=== PATIENT | male | born 1955 | race Caucasian/White ===

== ENCOUNTER 2020-07-05 14:35 | Inpatient (IN) | payer OTHER ==
[~2020-07-05] VITALS: Ht 188 cm; Wt 69.4 kg
[2020-07-05] VITALS (15 sets, daily range): BP systolic 78–169; BP diastolic 37–141
--- NOTE | 2020-07-05 14:51 | NUR ---
HOLGER, MAYNOR, [phone] CALLED.
--- NOTE | 2020-07-05 14:52 | NUR ---
ANOTHER CG, LEXIE, CAN BE CONTACTED
[2020-07-05] MEDS ORDERED: IV NS 0.9% 1,000 ML BAG IV ONE ×2 (15:00→16:00)
[2020-07-05] MEDS ORDERED: DEXTROSE 50%-WATER 50 ML DISP.SYRIN ONE ×2 (15:01→16:08)
[2020-07-05 15:10] LABS: BASOPHILS # (AUTO) 0.1 /CMM (0.0-0.2); BASOPHILS % (AUTO) 0.8 % (0.0-2.0); EOSINOPHILS % (AUTO) 0.4 % (0.0-6.0); HEMATOCRIT 24 % (39-51); HEMOGLOBIN 7.5 g/dL (13.5-17.5); LYMPHOCYTES # (AUTO) 1.4 /CMM (0.8-4.8); LYMPHOCYTES % (AUTO) 16.2 % (20.0-44.0); MEAN CORPUSCULAR HGB CONC 32 g/dl (31.0-36.0); MEAN CORPUSCULAR VOLUME 93 fL (80-96); MONOCYTES # (AUTO) 0.8 /CMM (0.1-1.30); MONOCYTES % (AUTO) 9.7 % (2.0-12.0); NEUTROPHILS # (AUTO) 6.3 /CMM (1.8-8.9); NEUTROPHILS % (AUTO) 72.9 % (43.0-81.0); PLATELET COUNT (AUTO) 139 /CMM (150-450); RED BLOOD CELL COUNT(AUTO) 2.55 MIL/uL (4.5-6.0); WHITE BLOOD COUNT (AUTO) 8.7 K/uL (4.3-11.0)
--- NOTE | 2020-07-05 15:12 | NUR ---
DILCIA FROM HOME TO ER BED 5. AAOX4. IN MODERATE DISTRESS, SOB. BROUGHT IN FOR HYPOTENSION, WEAKNESS, HYPOGLYCEMIA AND HYPOXIA. PT VERBALIOZED THAT HE DOES NOT FEEL GOOD. PT IS NOTED SOB AND WAS REPORTED TO HAVE O2 SAT IN THE 80S, BP WAS NOTED IN THE 90S, ACCUCHECK 56 AND WAS REPORTED BY EMS IN THE 20S. PT REPORTS THAT HE HASNT BEEN EATING WELL FOR THE PAST SEVERAL DAY. PT IS PLACED ON02 VIA NC AND PATTING @ 95%, FLUIDS RUNNING AND GIVNE 1 AMP D50%.. WAS AT THE BEDSIDE FOR EVAL. ORDERS RECEIVED, NOTED AND CARRIED OUT. IV LINE ESTABLISHED BY EMS ON THE L AC 18. BLOOD DRAWN. EKG DONE. COVID SWAB DONE. PT ON MONITOR.
[2020-07-05] MEDS ORDERED: ONDA4TAB5 PO (15:17)
[2020-07-05] MEDS ORDERED: POLY17PO4 PO (15:17)
[2020-07-05] MEDS ORDERED: CYAN-6 IM (15:17)
[2020-07-05] MEDS ORDERED: SORA200T2 PO (15:17)
[2020-07-05] MEDS ORDERED: POTA20TA83 PO (15:17)
[2020-07-05] MEDS ORDERED: NITR0.4T48 SL (15:17)
[2020-07-05] MEDS ORDERED: TEST200V3 IM (15:17)
[2020-07-05] MEDS ORDERED: CHOL100062 PO (15:17)
[2020-07-05] MEDS ORDERED: BUPR300T52 PO (15:17)
[2020-07-05] MEDS ORDERED: FURO-144 PO (15:17)
[2020-07-05] MEDS ORDERED: OXYC60TA8 PO (15:17)
[2020-07-05] MEDS ORDERED: CARV6.252 PO (15:17)
[2020-07-05] MEDS ORDERED: OXYC30TA48 PO (15:17)
[2020-07-05] MEDS ORDERED: ESOM20CA PO (15:17)
[2020-07-05] MEDS ORDERED: LACT10SO3 PO (15:17)
[2020-07-05] MEDS ORDERED: DOLU50TA PO (15:17)
[2020-07-05] MEDS ORDERED: MULT-447 PO (15:17)
[2020-07-05] MEDS ORDERED: DARU1TAB PO (15:17)
[2020-07-05] MEDS ORDERED: DOCU-141 PO (15:17)
[2020-07-05 15:23] LABS: CALCIUM, SERUM 8.4 mg/dL (8.5-10.1); CARBON DIOXIDE 20 mmol/L (21-32); CHLORIDE 97 mmol/L (98-107); CREATININE 1.9 mg/dL (0.6-1.3); GLUCOSE 60 mg/dL (74-106); POTASSIUM 5.2 mmol/L (3.5-5.1); SODIUM SERUM 130 mmol/L (136-145); UREA NITROGEN, BLOOD 20 mg/dL (7-18)
[2020-07-05 15:53] LABS: ALBUMIN 2.1 g/dL (3.4-5.0); ALKALINE PHOSPHATASE 292 U/L (46-116); BILIRUBIN,DIRECT 1.5 mg/dL (0.0-0.2); BILIRUBIN,TOTAL 2.3 mg/dL (0.2-1.0); TOTAL PROTEIN, SERUM 5.9 g/dL (6.4-8.2)
[2020-07-05] MEDS ORDERED: INSULIN REGULAR, HUMAN 100 UNIT/ML 10 ML VIAL ONE (15:55)
[2020-07-05] MEDS ORDERED: VANCOMYCIN 1 GM VIAL ONE (15:55)
[2020-07-05] MEDS ORDERED: PIPERACILLIN /TAZOBACTAM 3.375 G VIAL IV ONE (15:55)
[2020-07-05] MEDS ORDERED: PIPERACILLIN /TAZOBACTAM 3.375 G in IV D5W 50 ML IV ONE (16:00)
[2020-07-05] MEDS ORDERED: DEXTROSE 50%-WATER 50 ML DISP.SYRIN IV ONE (16:00)
[2020-07-05] MEDS ORDERED: VANCOMYCIN 1 GM in IV D5W 250 ML IV ONE (16:00)
[2020-07-05] MEDS ORDERED: INSULIN REGULAR, HUMAN 100 UNIT/ML 10 ML VIAL IV ONE (16:00)
[2020-07-05] MEDS ORDERED: Calcium Gluconate 1GM/10ML 4.65 MEQ in IV D5W 50 ML IV ONE (16:00)
[2020-07-05 16:12] LABS: SERUM AMMONIA 63 umol/L (11-32)
--- NOTE | 2020-07-05 16:13 | NUR ---
MD MADE AWARE OF BS 74 AFTER D50% WAS GIVEN. PT IS TO RECEIVE INSULIN FOR ELEVATED K+, MD MADE AWARE AND VERBAL ORDER RECEIVED TO GIVE 1 AMP D50% IVP X 1. NOTED AND CARRIED OUT.
[2020-07-05 16:17] LABS: ALANINE AMINOTRANSFERASE 1148 U/L (12-78)
--- NOTE | 2020-07-05 16:23 | NUR ---
PAGED SUSI GEORGE FOR ADMISSION
[2020-07-05] MEDS ORDERED: DEXTROSE 50%-WATER 50 ML DISP.SYRIN IVP ONE (16:30)
[2020-07-05 16:31] LABS: ASPARTATE AMINOTRANSFERASE 4884 U/L (15-37)
[2020-07-05] MEDS ORDERED: IOHEXOL-350 100 ML VIAL IV ONE (16:37)
[2020-07-05] MEDS ORDERED: CT SWABBABLE VALVE TRANS SET 1 EA INFUS.SET MC ONE (16:37)
[2020-07-05] MEDS ORDERED: IV NS 0.9% 250 ML IV ONE (16:37)
--- NOTE | 2020-07-05 16:50 | NUR ---
PT TO CT ON JAMILAH
--- NOTE | 2020-07-05 16:59 | NUR ---
PT STILL UNABLE TO PROVIDE URINE AT THS TIME. PT OFFERED COLLECTION VIA CATH BY REFUSED. MADE AWARE
--- NOTE | 2020-07-05 17:45 | NUR ---
MD MADE AWARE THAT BP IS 96/55 HR 125. NNO RECEIVED.
[2020-07-05 17:51] LABS: BILIRUBIN,URINE SMALL (NEGATIVE); COLOR,URINE DARK YELLOW (YELLOW); LEUKOCYTE ESTERASE ,URINE Negative (NEGATIVE); NITRITE, URINE Negative (NEGATIVE); PH,URINE 5.5 (5.0-8.0); PROTEIN,URINE >=300 mg/dl (NEGATIVE); UGLUCOSE Negative (NEGATIVE); UROBILINOGEN,URINE 0.2 EU/dL (0.2)
[2020-07-05 18:08] LABS: BACTERIA,URINE Few /HPF (None Seen); FINE GRANULAR CASTS,URINE Few /LPF (None Seen); HYALINE CASTS, URINE Few /LPF (None Seen); SQUAMOUS EPITHELIAL CELL,UR Few /HPF (None Seen); URINE AMORPHOUS URATE Moderate /HPF (None Seen); WBC,URINE 0-2 /HPF (0-3)
--- NOTE | 2020-07-05 18:55 | NUR ---
PT NOTED WITH BP OF 88/60 AND HR OF 127. MD MADE AWARE. VERBAL ORDER RECEIVED TO START LEVOPHED PERIPHERALLY.
--- NOTE | 2020-07-05 19:10 | NUR ---
PATRICIO, [facility] - [phone]
[2020-07-05] MEDS ORDERED: NOREPINEPHRINE 8 MG in IV NS 0.9% 250 ML IV ONE (19:30)
--- NOTE | 2020-07-05 19:54 | NUR ---
SUSI GEORGE DNP AT BEDSIDE TO RE-EVAL PT.
--- NOTE | 2020-07-05 20:16 | NUR ---
REPORT GIVEN TO ALICIA SALVADOR FOR LUCIEN
[2020-07-05] MEDS ORDERED: Z GUARD REMEDY 2 OZ OINT TP PRN (20:30)
[2020-07-05] MEDS ORDERED: GLUCAGON,HUMAN RECOMBINANT 1 MG/VIAL VIAL IM ONE (20:30)
[2020-07-05] MEDS ORDERED: DEXAMETHASONE SOD PHOSPHATE 10 MG/ML VIAL IV ONE (20:30)
[2020-07-05] MEDS ORDERED: HYDROMORPHONE INJ 2 MG/ML DISP.SYRIN IV PRN (20:30)
[2020-07-05] MEDS ORDERED: NOREPINEPHRINE 8 MG in IV NS 0.9% 242 ML IV PRN (20:30)
[2020-07-05] MEDS ORDERED: ZOLPIDEM TARTRATE 5 MG TABLET PO PRN (20:30)
[2020-07-05] MEDS ORDERED: FLUCONAZOLE IN NS 100 MG in PREMIX 1 EA IV SCH (20:30)
[2020-07-05] MEDS ORDERED: ACETAMINOPHEN 325 MG TABLET PO PRN (20:30)
[2020-07-05] MEDS ORDERED: ONDANSETRON HCL/PF 4 MG/2 ML VIAL IVP PRN (20:30)
--- NOTE | 2020-07-05 20:38 | NUR ---
pt transported to unit on gurney with emt and rn at bedside w/ acls protocol. nad noted during transport.
[2020-07-05] MEDS: NOREPINEPHRINE 8 MG in IV NS 0.9% 242 ML IV PRN (20:45)
--- NOTE | 2020-07-05 20:45 | NUR ---
ELECTRIC SWITCH TESTER RCD PT FROM ER W/DX SEPSIS W/SHOCK; HYPOXIC RESP FAIL. PT IS A/O x4. RESISTANT TO CARE ASKING TO JUST BE LEFT ALONE. ST ON MONITOR. LEVOPHED 0.1 MCG/KG/MIN VIA RIGTH FEM TLC. SKIN INTACT. PT EDUCATED ON THE USE OF CALL LIGHT AND TO ASK FOR ASSISTANCE IF NEEDS TO GET OUT OF BED. Addendum: 07/06/20 at 0547 by MODESTO PETERSON RN O2 6L NC
[2020-07-05] MEDS: IV LR 1000 ML 1,000 ML IV PRN (21:05)
[2020-07-05] MEDS ORDERED: ALBUMIN 25% 100 ML IV ONE (21:18)
[2020-07-05] MEDS: FLUDROCORTISONE 0.1 MG TABLET PO SCH (21:25)
[2020-07-05] MEDS: HYDROCORTISONE SOD SUCCINATE 100 MG/2 ML VIAL IV SCH (21:25)
[2020-07-05] MEDS: ALBUMIN 25% 25 GM in PREMIX 1 EA IV SCH (21:25)
--- NOTE | 2020-07-05 21:30 | NUR ---
SCHOOL NURSE PT REQUESTING XANAX 2 MG FOR SLEEP; PER PT THIS IS WHAT HE TAKES AT HOME.
[2020-07-05] MEDS ORDERED: FLUCONAZOLE IN NS 100 ML IV ONE (21:37)
[2020-07-05 21:55] LABS: THYROID STIMULATING HORMONE 5.983 uIU/mL (0.358-3.74)
[2020-07-05] MEDS ORDERED: CEFEPIME 2 GM in IV D5W 100 ML IV ONE (22:00)
[2020-07-05] MEDS ORDERED: ALPRAZOLAM 1 MG TABLET PO PRN (22:00)
[2020-07-05] MEDS ORDERED: IV NS 0.9% 250 ML IV PRN (22:30)
--- NOTE | 2020-07-05 22:30 | NUR ---
LITIGATION DOCKET MANAGER PT ATTEMPTING TO GET OUT OF BED; REEDUCATED PT THAT HE NEEDS TO CALL FOR ASSISTANCE PRIOR TO GETTING OUT OF BED HE IS ATTACHED TO THE MONITOR AND HAD MEDICATIONS RUNNING THRU HIS FEM SITE. PT ATTEMPTED TO URINATE UNSUCCESFULLY.
[2020-07-05] MEDS ORDERED: CEFEPIME 1 GM VIAL ONE (23:12)
[2020-07-05] MEDS ORDERED: ALBUMIN 25% 50 ML IV ONE (23:13)
--- NOTE | 2020-07-05 23:50 | NUR ---
MOTOR ASSEMBLY SUPERVISOR BSWR APPLIED TO PREVENT SELF EXTUBATION.
[2020-07-06] VITALS (40 sets, daily range): BP systolic 35–136; BP diastolic 20–85
[2020-07-06] MEDS ORDERED: CLINDAMYCIN IV RTU IN D5W 900 MG/50 ML PIGGYBACK IV ONE
[2020-07-06] MEDS ORDERED: IV 10% DEXTROSE 1,000 ML IV PRN
--- NOTE | 2020-07-06 | NUR ---
ECOMMERCE ANALYST PT NOTED TO BE DESATURATING WITH DECREASED HEART RATE. PT PEA. CODE BLUE CALLED. PT INTUBATED BY ER MD OSORIO. RCD ORDERS FOR NG TUBE TO LIS. RESTRAINTS. PROPORFOL NEEDED. POST INTUBATION CXR AND ABG DONE.
[2020-07-06 00:01] LABS: BASOPHILS # (AUTO) 0.1 /CMM (0.0-0.2); BASOPHILS % (AUTO) 1.1 % (0.0-2.0); EOSINOPHILS % (AUTO) 0.4 % (0.0-6.0); HEMATOCRIT 23 % (39-51); HEMOGLOBIN 7.4 g/dL (13.5-17.5); LYMPHOCYTES # (AUTO) 1.1 /CMM (0.8-4.8); LYMPHOCYTES % (AUTO) 16.2 % (20.0-44.0); MEAN CORPUSCULAR HGB CONC 32 g/dl (31.0-36.0); MEAN CORPUSCULAR VOLUME 92 fL (80-96); MONOCYTES # (AUTO) 0.2 /CMM (0.1-1.30); MONOCYTES % (AUTO) 3.1 % (2.0-12.0); NEUTROPHILS # (AUTO) 5.4 /CMM (1.8-8.9); NEUTROPHILS % (AUTO) 79.2 % (43.0-81.0); PLATELET COUNT (AUTO) 118 /CMM (150-450); WHITE BLOOD COUNT (AUTO) 6.8 K/uL (4.3-11.0)
--- NOTE | 2020-07-06 00:14 | NUR ---
CODE BLUE @6205. CPR INITIATED. ER MD OSORIO AT BEDSIDE FOR INTUBATION. PT INTUBATED @2341. 7.5 ETT SECURED AT 25CM AT THE LIP. COLOR CHANGE ON CO2 DETECTOR, BILAT CHEST RISE. PT PLACED ON 840 VENT. AC 20, 500, 100%, +5. ABG IN 30MINS. Addendum: 07/06/20 at 0019 by GENE BALTAZAR RT Amended: Links added.
[2020-07-06 00:56] LABS: CALCIUM, SERUM 7.6 mg/dL (8.5-10.1)
[2020-07-06 01:02] LABS: POTASSIUM 6.3 mmol/L (3.5-5.1)
[2020-07-06 01:25] LABS: ABG BASE EXCESS -11.7 mmol/L; ABG OXYGEN SATURATION 99.1 % (92.0-98.5); ABG PCO2 33.4 mmHg (35.0-45.0); ABG PH 7.253 (7.350-7.450); ABG PO2 187.5 mmHg (75.0-100.0); AaDO2 492.1 mmHg; COHb 0.3 % (0.5-1.5); MetHb 0.4 % (0.0-1.5); O2Hb 98.4 % (94.0-97.0); PEEP,BG 5 cm H2O; SITE, ABG Right Radial
--- NOTE | 2020-07-06 01:25 | NUR ---
ABG DONE. NOTIFIED RN WITH RESULT.
[2020-07-06] MEDS ORDERED: DEXTROSE 50%-WATER 50 ML DISP.SYRIN IVP ONE ×2 (01:30→06:00)
[2020-07-06] MEDS ORDERED: INSULIN REGULAR, HUMAN 100 UNIT/ML 3 ML VIAL IV ONE ×2 (01:30→06:00)
[2020-07-06] MEDS ORDERED: SODIUM POLYSTYRENE SULFONATE 15 G/60 ML BOTTLE PO ONE ×2 (01:30→06:00)
[2020-07-06] MEDS ORDERED: SODIUM POLYSTYRENE SULFONATE 15 G/60 ML BOTTLE ONE ×2 (01:36→06:31)
[2020-07-06] MEDS ORDERED: INSULIN REGULAR, HUMAN 100 UNIT/ML 3 ML VIAL ONE (01:38)
--- NOTE | 2020-07-06 02:00 | NUR ---
BIOCHEMISTRY PROFESSOR PROPOFOL STARTED PER PROTOCOL PT NOTED TO BE TACHYPNEIC.
[2020-07-06] MEDS: IV LR 1000 ML 1,000 ML IV PRN ×2 (02:05→07:39)
[2020-07-06] MEDS: PROPOFOL 100 ML IV PRN ×2 (02:11→06:18)
[2020-07-06] MEDS ORDERED: ALBUMIN 25% 50 ML IV ONE (03:26)
[2020-07-06] MEDS: ALBUMIN 25% 25 GM in PREMIX 1 EA IV SCH ×2 (03:30→09:10)
[2020-07-06 04:34] LABS: BASOPHILS % (AUTO) 0.4 % (0.0-2.0); HEMATOCRIT 22 % (39-51); HEMOGLOBIN 7.3 g/dL (13.5-17.5); LYMPHOCYTES # (AUTO) 0.2 /CMM (0.8-4.8); LYMPHOCYTES % (AUTO) 5.5 % (20.0-44.0); MEAN CORPUSCULAR HGB CONC 33 g/dl (31.0-36.0); MEAN CORPUSCULAR VOLUME 90 fL (80-96); MONOCYTES # (AUTO) 0.3 /CMM (0.1-1.30); MONOCYTES % (AUTO) 9.2 % (2.0-12.0); NEUTROPHILS % (AUTO) 84.9 % (43.0-81.0); PLATELET COUNT (AUTO) 93 /CMM (150-450); RED BLOOD CELL COUNT(AUTO) 2.45 MIL/uL (4.5-6.0); WHITE BLOOD COUNT (AUTO) 3.5 K/uL (4.3-11.0)
[2020-07-06 04:46] LABS: CHOLESTEROL 19 mg/dL (<200); LDL 10 mg/dL (0-99); TRIGLYCERIDES 58 mg/dL (30-150)
[2020-07-06 04:50] LABS: HDL CHOLESTEROL < 10 mg/dL (40-60)
[2020-07-06] MEDS: HYDROCORTISONE SOD SUCCINATE 100 MG/2 ML VIAL IV SCH ×2 (05:24→12:41)
[2020-07-06 05:40] LABS: ALANINE AMINOTRANSFERASE 3412 U/L (12-78); ALBUMIN 2.3 g/dL (3.4-5.0); ALKALINE PHOSPHATASE 576 U/L (46-116); BILIRUBIN,TOTAL 4.9 mg/dL (0.2-1.0); CARBON DIOXIDE 16 mmol/L (21-32); CHLORIDE 95 mmol/L (98-107); CREATININE 2.2 mg/dL (0.6-1.3); GLUCOSE 81 mg/dL (74-106); MAGNESIUM 2.6 mg/dL (1.8-2.4); SODIUM SERUM 128 mmol/L (136-145); UREA NITROGEN, BLOOD 29 mg/dL (7-18)
[2020-07-06 05:43] LABS: PHOSPHORUS 13.5 mg/dL (2.5-4.9)
[2020-07-06 05:49] LABS: POTASSIUM 7.1 mmol/L (3.5-5.1)
[2020-07-06] MEDS ORDERED: SODIUM BICARBONATE SYR 50 MEQ/50 ML DISP.SYRIN IV ONE ×2 (06:00→17:15)
--- NOTE | 2020-07-06 06:00 | NUR ---
BLOCK TESTER PT ADEQUATELY SEDATED; DECREASED PROPOFOL PER PROTOCOL AND REMOVED RESTRAINTS.
[2020-07-06 06:05] LABS: BAND % (MANUAL) 27 % (0.0-5.0); LYMPHOCYTES % (MANUAL) 4 % (16-48); MONOCYTES % (MANUAL) 10 % (0-11.0); NEUTROPHILS % (MANUAL) 59 (42-76)
[2020-07-06] MEDS ORDERED: Calcium Gluconate 0.465 MEQ/ML VIAL IV ONE (06:21)
[2020-07-06] MEDS ORDERED: PROPOFOL 10MG/ML 50ML 50 ML IV PRN (06:30)
[2020-07-06] MEDS ORDERED: Calcium Gluconate 1GM/10ML 4.65 MEQ in IV D5W 50 ML IV ONE (06:30)
[2020-07-06 06:57] LABS: ASPARTATE AMINOTRANSFERASE 17008 U/L (15-37)
--- NOTE | 2020-07-06 07:30 | NUR ---
RN NOTES RECEIVED PATIENT ETT/VENT DEPENDENT. ETT-7.5/25, FIO2-50, PEEP -5, TV-500, BP-127/75, P-72, 02-100, PATIENT HAS NO REFLEX OF CORNEAL, NO GAG REFLEX, NOT RESPONDING PAIN . DECREASED DIPRIVAN PER PROTOCOL. KCL-7.1, ACCORDING NIGHT NURSE ADMINISTERED SCHEDULED MEDICATION TO DECREASE LEVEL. PATIENTS SKIN YELLOW DISCOLORATION. INFUSING LEVOPHED 0.3 MCG/KG/HR, LR-175 ML/HR, D10@40ML, AND TKO 10ML ON FEMORAL TLC. PATENT FULL CODE, SEEN REVERSER Dr BOOTH, AND Dr MCCAIN. VINOD HAS NO OUTPUT. WILL MONITORING.
[2020-07-06] MEDS: FLUDROCORTISONE 0.1 MG TABLET PO SCH (08:06)
[2020-07-06] MEDS ORDERED: PANTOPRAZOLE 40 MG VIAL IV SCH (09:00)
[2020-07-06] MEDS ORDERED: MULTIVITAMINS,THERAGRAN 1 UDTAB TABLET PO SCH (09:00)
--- NOTE | 2020-07-06 09:30 | NUR ---
RN NOTES PATIENT DNR AT THIS TIME WITH ORDER OF Dr BOOTH. PATIENT HAS NO CORNEAL LIGHT REFLEX , NO GOUGE REFLEX, INCREASED LEVOPHED 0.6MCG/KG/HR BECAUSE DROP BP 79/56.
[2020-07-06] MEDS: NOREPINEPHRINE 8 MG in IV NS 0.9% 242 ML IV PRN ×2 (09:57→12:19)
[2020-07-06 09:59] LABS: CALCIUM, SERUM 6.5 mg/dL (8.5-10.1); CREATININE 2.4 mg/dL (0.6-1.3)
[2020-07-06] MEDS ORDERED: CEFEPIME 2 GM in IV D5W 100 ML IV SCH (10:00)
[2020-07-06 10:09] LABS: POTASSIUM 8.1 mmol/L (3.5-5.1)
--- NOTE | 2020-07-06 10:10 | NUR ---
RN NOTES GET CALL FROM LAB [facility] 8.1, HOSPITALIST NOTIFIED. PATIENTS FRIEND BEDSIDE. HOSPITALIST TALK TO HER, AND EXPLAINED PATIENT CRITICAL CONDITION.
[2020-07-06] MEDS ORDERED: Sodium Bicarbonate 100 MEQ in IV D5/0.45 NACL 1,000 ML IV PRN (10:30)
--- NOTE | 2020-07-06 10:41 | NUR ---
RN NOTES BELONGING GIVEN FRIEND NAME GILBERT [phone], AND SIGN PAPERWORK. PER DR MCCAIN RT CHANGE VENT SETTING RESPIRATORY 20 TO 28 , BP 39/20, P-20, O2-42, R-28. FRIENDS NEXT TO THE BED.
--- NOTE | 2020-07-06 11:56 | NUR ---
RN NOTES PATIENTS FIENDS ASKING EXTUBATION . NOTIFIED HOSPITALIST BOB SEALS TO SPEAK FRIENDS ABOUT WISHES.
[2020-07-06] MEDS ORDERED: VANCOMYCIN 0.75 GM in IV D5W 250 ML IV SCH (12:00)
[2020-07-06] MEDS ORDERED: LORAZEPAM INJ 2 MG/ML VIAL IV ONE (13:00)
[2020-07-06] MEDS ORDERED: SCOPOLAMINE PATCH 1 MG/72HR TD SCH (13:00)
--- NOTE | 2020-07-06 13:08 | NUR ---
RN NOTES GET ORDER EXTUBATION AT THIS TIME VIA HOSPITALIST FOR COMFORT CARE. ALSO GET Transderm Scop Patch 1 mg/72 Hr(SCOPOLAMINE PATCH 1 MG/72HR 1 EA TD Q72H RAPHAEL <1 PATCH.TD72> ANTI NAUSEA VIA ARNEL RENEE NP. RT NOTIFIED.
--- NOTE | 2020-07-06 13:29 | NUR ---
RN NOTES PATIENT EXTUBATED AT THIS TIME FOR COMFORT MEASURE, PATIENT STILL HAS A PULSE 50. ADMINISTERED ATIVAN 0.5 MG/ML IV PUSH, AND NAUSEA MEDICATION APPLIED BEHIND OF EAR. FRIENDS IN THE BEDSIDE.
--- NOTE | 2020-07-06 13:45 | NUR ---
RN NOTES PATIENT PRONOUNCED AT THIS TIME VIA HOSPITALIST BOB SOLORIO. PATIENT HAS NO AUDIBLE HEART TONE, NO BP, NO RR. POST MORTEM CARE DONE, BELONGING TAKEN VIA FRIENDS, AND SIGNED BELONGING LIST. TAGS APPLIED. WILL CALL SECURITY PERSONNEL AFTER CALLING [facility] BODY ROUNDHOUSE WORKER.
--- NOTE | 2020-07-06 13:45 | NUR ---
rn notes patient at this time, notified hospitalist Shaan Hodge [employer] BI DEVELOPER, warehouse order picker, and admitting. friends at bedside. stop medication, and o2nc.
--- NOTE | 2020-07-06 14:14 | NUR ---
rn notes called rn cvor department and spoke personal name Bita. According personal patient is not rn cvor. will call [facility].
--- NOTE | 2020-07-06 14:20 | NUR ---
rn notes called [facility] report personnel name is Tamiko case # is [phone].
--- NOTE | 2020-07-06 15:00 | NUR ---
RN NOTES PATIENT BODY TAKEN DOWN TO [facility] AT THIS TIME.
--- NOTE | 2020-07-06 15:12 | NUR ---
RN NOTES GET CALL FROM [facility] PERSONNEL NAME VANESSA AT THIS TIME FOR TISSUE DONATION ELIGIBILITY. ACCORDING DX: HIV, AND CA HISTORY, UNABLE GET TISSUE DONATION. CAN RELEASE BODY. RELEASE # [id number].
[2020-07-06] MEDS ORDERED: DEXTROSE 50%-WATER 50 ML DISP.SYRIN IV ONE (17:15)
[2020-07-06] MEDS ORDERED: EPINEPHRINE (1:10,000) SYRINGE 1 MG/10 ML DISP.SYRIN IVP ONE (17:15)
[2020-07-07 05:08] LABS: *BASOS 3 % (Not Estab.); *BASOS, ABSOLUTE 0.3 x10E3/uL (0.0-0.2); *COMMENTS Note: (.); *EOS 0 % (Not Estab.); *HGB 8.6 g/dL (13.0-17.7); *LYMPHOCYTES 24 % (Not Estab.); *LYMPHS, ABSOLUTE 2.4 x10E3/uL (0.7-3.1); *MCH 28.6 pg (26.6-33.0); *MCHC 34.4 g/dL (31.5-35.7); *MCV 83 fL (79-97); *MONOCYTES 5 % (Not Estab.); *MONOS, ABSOLUTE 0.5 x10E3/uL (0.1-0.9); *NEUTROPHILS 68 % (Not Estab.); *NEUTROPHILS, ABSOLUTE 6.7 x10E3/uL (1.4-7.0); *PLT 158 x10E3/uL (150-450); *RBC 3.01 x10E6/uL (4.14-5.80); *RDW 15.7 % (11.6-15.4)
[2020-07-07 11:08] LABS: *% CD 4 POS. LYMPH 43.9 % (30.8-58.5); *% CD 8 POS. LYMPH 47.3 % (12.0-35.5); *ABSOLUTE CD 4 HELPER 1054 /uL (359-1519); *ABSOLUTE CD 8 SUPPRESSOR 1135 /uL (109-897); *CD4/CD8 RATIO 0.93 (0.92-3.72)
[2020-07-10 19:06] LABS: *HIV-1 RNA BY PCR <20 copies/mL (.)
== END 2020-07-06 18:09 | DRG 871 ==
LOC: ER 14:36 → ICU 20:21
PROVIDERS: ADMIT Nurse Practitioner Acute Care; ATTEND Nurse Practitioner Family
PROC: 5A1945Z Respiratory Ventilation, 24-96 Consecutive Hours (ICD-10-PCS; principal; 2020-07-06)
PROC: 0BH18EZ Insertion of Endotracheal Airway into Trachea, Via Natural or Artificial Opening Endoscopic (ICD-10-PCS; 2020-07-06)
PROC: 5A12012 Performance of Cardiac Output, Single, Manual (ICD-10-PCS; 2020-07-06)
DX: A41.9 Sepsis, unspecified organism (principal); E43 Unspecified severe protein-calorie malnutrition; N17.0 Acute kidney failure with tubular necrosis; J96.21 Acute and chronic respiratory failure with hypoxia; R65.21 Severe sepsis with septic shock; K65.9 Peritonitis, unspecified; D61.818 Other pancytopenia; E87.1 Hypo-osmolality and hyponatremia; I50.32 Chronic diastolic (congestive) heart failure; E87.4 Mixed disorder of acid-base balance; G93.1 Anoxic brain damage, not elsewhere classified; I13.0 Hypertensive heart and chronic kidney disease with heart failure and stage 1 through stage 4 chronic kidney disease, or unspecified chronic kidney disease; D68.4 Acquired coagulation factor deficiency; E87.2 Acidosis; I31.3 Pericardial effusion (noninflammatory); J98.11 Atelectasis; C64.9 Malignant neoplasm of unspecified kidney, except renal pelvis; Z68.1 Body mass index [BMI] 19.9 or less, adult; C79.9 Secondary malignant neoplasm of unspecified site; I46.9 Cardiac arrest, cause unspecified; D63.8 Anemia in other chronic diseases classified elsewhere; I11.0 Hypertensive heart disease with heart failure; E16.2 Hypoglycemia, unspecified; E83.39 Other disorders of phosphorus metabolism; E87.5 Hyperkalemia; G89.3 Neoplasm related pain (acute) (chronic); F32.9 Major depressive disorder, single episode, unspecified; J44.9 Chronic obstructive pulmonary disease, unspecified; Z20.822 Contact with and (suspected) exposure to COVID-19; N18.9 Chronic kidney disease, unspecified; Z66 Do not resuscitate; Z79.4 Long term (current) use of insulin; R74.01 Elevation of levels of liver transaminase levels; E88.09 Other disorders of plasma-protein metabolism, not elsewhere classified; K72.90 Hepatic failure, unspecified without coma; D69.6 Thrombocytopenia, unspecified; T17.990A Other foreign object in respiratory tract, part unspecified in causing asphyxiation, initial encounter; X58.XXXA Exposure to other specified factors, initial encounter; Y93.9 Activity, unspecified; Y92.89 Other specified places as the place of occurrence of the external cause; K21.9 Gastro-esophageal reflux disease without esophagitis; G89.4 Chronic pain syndrome; R91.8 Other nonspecific abnormal finding of lung field; M62.50 Muscle wasting and atrophy, not elsewhere classified, unspecified site; Z92.21 Personal history of antineoplastic chemotherapy
CPT/HCPCS: 31720; 36415; 36600; 71045-TC; 76700-TC; 80048-TC; 80053-TC; 80061-TC; 80076-TC; 81001; 82140-TC; 82533; 82803-TC; 82962-TC; 83540-TC; 83605-TC; 83735-TC; 84100-TC; 84443-TC; 84478-TC; 84484-TC; 85025-TC; 85045-TC; 85652-TC; 85730-TC; 86360; 87040-TC; 87081-TC; 87536; 92950-TC; 94002-TC; 94003-TC; 94760-TC; 94799-TC; A4216; A6403; C9113; C9803; G0378; J0171; J0610; J0692; J1100; J1450; J1610; J1720; J1815; J2060; J2543; J3370; J3490; J7030; J7050; J7060; J7120; P9047; Q9967